=== PATIENT | male | born 1970 | race Caucasian/White ===

== ENCOUNTER 2016-06-28 09:07 | Emergency (ER) | payer BC ==
[2016-06-28 10:15] VITALS: BP 135/83
[2016-06-28] MEDS ORDERED: Naproxen TAB* 250 MG PO ONE (10:38)
--- NOTE | 2016-06-28 10:40 | UC ---
Elbow Pain - HPI Summary HPI Summary: 45 yo male with the onset of right elbow pain yesterday AM the night before he was bowling he is right handed - History of Current Complaint Chief Complaint: UCUpperExtremity Stated Complaint: RIGHT ARM INJURY Time Seen by Provider: 06/28/16 10:30 Hx Obtained From: Patient Severity Initially: Mild Severity Currently: Moderate Pain Intensity: 7 Pain Scale Used: 0-10 Numeric Character: Aching, Stiffness Aggravating Factor(s): Movement Alleviating Factor(s): Rest Associated Signs And Symptoms: Negative: Swelling, Redness, Bruising, Fever, Weakness, Numbness/Tingling - Allergies/Home Medications Allergies/Adverse Reactions: Allergies Allergy/AdvReac Type Severity Reaction Status Date / Time No Known Allergies Allergy Verified 06/28/16 10:14 PMH/Surg Hx/FS Hx/Imm Hx Previously Healthy: Yes Endocrine History Of: Denies: Diabetes, Thyroid Disease Cardiovascular History Of: Denies: Cardiac Disorders, Hypertension Respiratory History Of: Denies: COPD, Asthma GI/ History Of: Denies: Ulcer - Surgical History Surgical History: None - Family History Known Family History: Negative: Cardiac Disease, Hypertension, Diabetes - Social History Alcohol Use: Weekly Alcohol Amount: 5 Substance Use Type: None Smoking Status (MU): Never Smoked Tobacco Review of Systems Constitutional: Negative Skin: Negative Eyes: Negative ENT: Negative Respiratory: Negative Cardiovascular: Negative Gastrointestinal: Negative Genitourinary: Negative Motor: Negative Neurovascular: Negative Musculoskeletal: Arthralgia Neurological: Negative Psychological: Negative All Other Systems Reviewed And Are Negative: Yes Physical Exam Triage Information Reviewed: Yes Appearance: Well-Appearing, No Pain Distress, Well-Nourished Vital Signs: Initial Vital Signs Temp 99.3 F 06/28/16 10:07 Pulse 109 06/28/16 10:07 Resp 24 06/28/16 10:07 BP 135/83 06/28/16 10:07 Vital Signs Reviewed: Yes Eyes: Positive: Conjunctiva Clear ENT: Positive: Hearing grossly normal. Negative: Nasal congestion, Nasal drainage, Tonsillar exudate, Trismus, Muffled/hoarse voice Neck: Positive: Supple, Nontender Respiratory: Positive: Lungs clear, Normal breath sounds, No respiratory distress Cardiovascular: Positive: RRR Musculoskeletal: Positive: No Edema, ROM Limited @ - right elbow- unable to fully extend, only able to flex to 90 degress Neurological: Positive: Alert Psychological Exam: Normal Skin Exam: Normal Elbow Pain Course/Dx - Course Course Of Treatment: xr (-) - Differential Dx/Diagnosis Provider Diagnoses: right elbow tendonitis Discharge - Discharge Plan Condition: Stable Disposition: HOME Prescriptions: Naproxen [Naproxen 500 MG TABS] 500 mg PO BID PRN #30 tab PRN Reason: Pain Patient Education Materials: Tendinitis (ED) Forms: *Work Release Referrals: Dav Trinidad MD [Medical Doctor] - As Soon As Possible (orthopedist) Willem Rashid MD [Medical Doctor] - As Soon As Possible (Sports medicine MD that comes to [facility]) Additional Instructions: sling for comfort you need to frequently apply heat and work on your range of motion massage across area that hurts follow with one of the MDs I referred you to both can give you steroid injections if this doesn't improve Images Front/Back of Body, Lg ([place]): 1 - tender here
--- NOTE | 2016-06-28 11:01 | RAD ---
INDICATION: Right elbow injury. TECHNIQUE: 4 views of the right elbow were obtained. FINDINGS: The bones are in normal alignment. No joint effusion or fracture is seen. Joint spaces appear maintained. IMPRESSION: NEGATIVE EXAM.
== END 2016-06-28 11:15 | disposition home or self-care (01) ==
LOC: UCCORT 09:07
DX: M77.9 Enthesopathy, unspecified (principal); M25.521 Pain in right elbow
CPT/HCPCS: 99213; A9270-GY; G0463